=== PATIENT | male | born 2000 | race Two or more races ===

== ENCOUNTER 2020-03-26 14:19 | Emergency (ER) | payer OTHER ==
[~2020-03-26] VITALS: Ht 182.9 cm; Wt 113.6 kg
[2020-03-26] MEDS ORDERED: NORCO, ANEXSIA 5/325MG TABLET (HYDROcodone/ACETAMINOPHEN) PO ONE (15:00)
[2020-03-26] MEDS ORDERED: KEFL500C17 PO (15:54)
[2020-03-26 16:01] VITALS: BP 133/73
== END 2020-03-26 16:05 | disposition home or self-care (01) ==
LOC: M ED 14:19
DX: S61.203A Unspecified open wound of left middle finger without damage to nail, initial encounter (principal); W26.0XXA Contact with knife, initial encounter; Y92.098 Other place in other non-institutional residence as the place of occurrence of the external cause

== ENCOUNTER → 2021-05-08 | Outpatient (REF) ==
[~2021-05-08] MED LIST: KEFL500C17 PO
--- NOTE | 2021-05-09 04:33 | REPPI ---
INDICATION: DISABILITY DIAGNOSIS DETERMINATION COMPARISON: None. TECHNIQUE: AP, lateral, and sunrise views of the left knee. FINDINGS: No acute fracture or dislocation. No significant degenerative changes. Joint spaces are intact and normal. No effusion. IMPRESSION: Normal left knee radiographs. <Electronically signed by Gilbert Norton > 05/09/21 1942
--- NOTE | 2021-05-09 04:33 | REPPI ---
INDICATION: DISABILITY DIAGNOSIS DETERMINATION COMPARISON: None. TECHNIQUE: AP, lateral, coned-down views of the lumbar spine. FINDINGS: Three views of the lumbosacral spine demonstrate satisfactory alignment and lordosis without acute fracture / compression injury or subluxation. Mild endplate sclerosis and disc space narrowing at L5-S1 noted. No further degenerative changes are appreciated. IMPRESSION: 1. No acute fracture / compression injury or subluxation. 2. Mild disc space narrowing at L5-S1 suggested. <Electronically signed by Gilbert Norton > 05/09/21 [id number]
--- NOTE | 2021-05-09 04:49 | REPPI ---
INDICATION: DISABILITY DIAGNOSIS DETERMINATION COMPARISON: None. TECHNIQUE: AP, lateral, bilateral oblique views left foot. FINDINGS: Evidence for prior satisfactory orthopedic fixation of the 5th metatarsal bone. Remainder of the examination is age-appropriate and normal. IMPRESSION: Essentially normal examination. Prior fixation at the 5th metatarsal bone. <Electronically signed by Gilbert Norton > 05/09/21 [id number]
== END ==
LOC: M PLAIMG 14:25
PROVIDERS: ATTEND Internal Medicine
DX: Z00.00 Encounter for general adult medical examination without abnormal findings (principal)

== ENCOUNTER 2021-05-18 11:27 | Emergency (ER) | payer OTHER ==
[~2021-05-18] VITALS: Ht 182.9 cm; Wt 121.9 kg
[2021-05-18] MEDS ORDERED: TIZA4TAB4 (11:33)
[2021-05-18 12:59] LABS: BASO % 0.4 % (0.0-1.0); EOS # 0.1 10^3/uL (0.0-0.5); EOS % 1.8 % (0.0-3.0); HEMATOCRIT 50.1 % (42.0-52.0); HEMOGLOBIN 16.8 g/dl (13.5-17.5); LYMPH % 43.5 % (24.0-44.0); MEAN CORPUSCULAR HEMOGLOBIN 29.9 pg (27.0-33.0); MEAN CORPUSCULAR HGB CONC 33.5 g/dl (32.0-36.5); MEAN CORPUSCULAR VOLUME 89.1 fl (80.0-96.0); MONO # 0.6 10^3/uL (0.0-0.8); NEUTROPHILS # 1.9 10^3/uL (1.5-8.5); NEUTROPHILS % 42.3 % (36.0-66.0); PLATELET COUNT, AUTOMATED 205 10^3/uL (150-450); RED BLOOD COUNT 5.62 10^6/uL (4.30-6.10); WHITE BLOOD COUNT 4.6 10^3/uL (4.0-10.0)
--- NOTE | 2021-05-18 13:09 | REP ---
INDICATION: CHEST PAIN. COMPARISON: None. FINDINGS: The superior mediastinal structures are midline. The cardiac silhouette is unremarkable in size, shape, and position. The diaphragmatic surfaces of the lungs are regular, and the costophrenic angles are clear. The pulmonary bradshaw are clear. The imaged osseous structures are intact. IMPRESSION: There is no acute cardiopulmonary disease. <Electronically signed by Zeferino Harmon > 05/18/21 [id number]
[2021-05-18 13:22] LABS: ERYTHROCYTE SEDIMENTATION RATE 2 mm/hr (0-15)
[2021-05-18 13:24] LABS: ALBUMIN 4.5 GM/DL (3.2-5.2); ALT/SGPT 47 U/L (12-78); BILIRUBIN,DIRECT 0.1 MG/DL (0.0-0.2); BILIRUBIN,TOTAL 0.7 MG/DL (0.2-1.0); BLOOD UREA NITROGEN 15 MG/DL (7-18); C REACTIVE PROTEIN QUANTITATIV 2.06 MG/DL (0.00-0.30); CALCIUM LEVEL 9.6 MG/DL (8.5-10.1); CARBON DIOXIDE LEVEL 30 MEQ/L (21-32); CHLORIDE LEVEL 103 MEQ/L (98-107); CPK CREATINE PHOSPHOKINASE 101 U/L (39-308); CREATININE FOR GFR 1.05 MG/DL (0.70-1.30); FREE T4 0.92 NG/DL (0.76-1.46); GLOMERULAR FILTRATION RATE > 60.0 (>60); GLUCOSE, FASTING 88 MG/DL (70-100); LIPASE 88 U/L (73-393); NT-PRO BNP < 5 PG/ML (<125); POTASSIUM SERUM 4.5 MEQ/L (3.5-5.1); SODIUM LEVEL 138 MEQ/L (136-145); TOTAL PROTEIN 8.1 GM/DL (6.4-8.2); TROPONIN I < 0.02 NG/ML (< 0.10)
[2021-05-18] MEDS ORDERED: ISOVUE-370 76% 100ML VIAL As Ordered ONE (13:36)
[2021-05-18 13:43] LABS: CK-MB VALUE MASS < 1.0 NG/ML (<3.6); MB/CK RELATIVE INDEX 0.99 (< OR =4)
--- NOTE | 2021-05-18 13:57 | REP ---
INDICATION: PLEURITIC CHEST PAIN, R/O PE, CARDIOMYOPATHY COMPARISON: None. TECHNIQUE: After the intravenous administration of [address] angiography of the chest was obtained with attention to the pulmonary arteries. FINDINGS: There is excellent visualization of the pulmonary arterial vasculature. No focal filling defects are present that would be considered consistent with acute pulmonary emboli. There is no mediastinal or hilar adenopathy. There is a small amount of soft tissue density in the anterior junctional. There are no pleural or pericardial effusions. The imaged upper abdomen is within normal limits. Limited evaluation of the thoracic aorta shows no abnormality. The imaged osseous structures are within normal limits. Evaluation of the lung bradshaw shows no abnormal nodules, masses, or opacities. IMPRESSION: There is a minimal amount of soft tissue density seen in the anterior junction line likely representing a small amount of residual thymic tissue. Examination is otherwise unremarkable. There is no pulmonary embolism. <Electronically signed by Zeferino Harmon > 05/18/21 [id number]
[2021-05-18] MEDS ORDERED: IBUPROFEN 800 MG TAB PO ONE (14:50)
[2021-05-18 15:07] VITALS: BP 120/86
[2021-05-18 15:20] LABS: CK-MB VALUE MASS < 1.0 NG/ML (<3.6); CPK CREATINE PHOSPHOKINASE 166 U/L (39-308); TROPONIN I < 0.02 NG/ML (< 0.10)
[2021-05-18] MEDS ORDERED: IBUP80TA PO (15:32)
--- NOTE | 2021-05-19 14:20 | ECGEPIP ---
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
--- NOTE | 2021-05-19 14:22 | ECGEPIP ---
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
== END 2021-05-18 15:44 | disposition home or self-care (01) ==
LOC: M ED 11:27
DX: R07.9 Chest pain, unspecified (principal); R06.00 Dyspnea, unspecified; R51.9 Headache, unspecified; Z77.098 Contact with and (suspected) exposure to other hazardous, chiefly nonmedicinal, chemicals
CPT/HCPCS: 36415; 71046; 71275; 80047; 80048; 80076; 82550; 82553; 83690; 83880; 84439; 84443; 84484; 85025; 85652; 86140; 93005; 99284; Q9967

== ENCOUNTER 2021-05-19 10:36 | Emergency (ER) | payer OTHER ==
[~2021-05-19] VITALS: Ht 182.9 cm; Wt 122.4 kg
[~2021-05-19 10:36] MED LIST changes: +IBUP80TA PO; +TIZA4TAB4
[2021-05-19 12:12] LABS: BASO % 0.2 % (0.0-1.0); EOS # 0.1 10^3/uL (0.0-0.5); EOS % 1.1 % (0.0-3.0); HEMATOCRIT 48.5 % (42.0-52.0); HEMOGLOBIN 16.2 g/dl (13.5-17.5); LYMPH # 1.5 10^3/uL (1.5-5.0); LYMPH % 28.6 % (24.0-44.0); MEAN CORPUSCULAR HEMOGLOBIN 29.6 pg (27.0-33.0); MEAN CORPUSCULAR HGB CONC 33.4 g/dl (32.0-36.5); MEAN CORPUSCULAR VOLUME 88.7 fl (80.0-96.0); MONO # 0.5 10^3/uL (0.0-0.8); MONO % 8.9 % (2.0-8.0); NEUTROPHILS # 3.2 10^3/uL (1.5-8.5); NEUTROPHILS % 60.8 % (36.0-66.0); PLATELET COUNT, AUTOMATED 194 10^3/uL (150-450); RED BLOOD COUNT 5.47 10^6/uL (4.30-6.10); WHITE BLOOD COUNT 5.3 10^3/uL (4.0-10.0)
[2021-05-19 12:31] LABS: ERYTHROCYTE SEDIMENTATION RATE 3 mm/hr (0-15)
[2021-05-19 12:37] LABS: BLOOD UREA NITROGEN 14 MG/DL (7-18); C REACTIVE PROTEIN QUANTITATIV 1.75 MG/DL (0.00-0.30); CARBON DIOXIDE LEVEL 33 MEQ/L (21-32); CHLORIDE LEVEL 104 MEQ/L (98-107); CK-MB VALUE MASS < 1.0 NG/ML (<3.6); CPK CREATINE PHOSPHOKINASE 97 U/L (39-308); GLOMERULAR FILTRATION RATE > 60.0 (>60); GLUCOSE, FASTING 96 MG/DL (70-100); MB/CK RELATIVE INDEX 1.03 (< OR =4); POTASSIUM SERUM 4.2 MEQ/L (3.5-5.1); SODIUM LEVEL 137 MEQ/L (136-145); TROPONIN I < 0.02 NG/ML (< 0.10)
--- NOTE | 2021-05-19 12:37 | REP ---
INDICATION: CHEST PAIN. COMPARISON: 05/18/2021 TECHNIQUE: Portable FINDINGS: The technique utilized in obtaining the radiograph has magnified the cardiac silhouette and accentuated the interstitial markings. The superior mediastinal structures are midline. The cardiac silhouette is unremarkable in size, shape, and position. The diaphragmatic surfaces of the lungs are regular, and the costophrenic angles are clear. The pulmonary bradshaw are clear. The imaged osseous structures are intact. IMPRESSION: There is no acute cardiopulmonary disease. <Electronically signed by Zeferino Harmon > 05/19/21 0182
[2021-05-19] MEDS ORDERED: KETOROLAC 30 MG/ML 1ML VIAL IV ONE (12:45)
[2021-05-19 13:04] LABS: ALBUMIN 4.4 GM/DL (3.2-5.2); ALT/SGPT 37 U/L (12-78); BILIRUBIN,DIRECT 0.2 MG/DL (0.0-0.2); BILIRUBIN,TOTAL 0.7 MG/DL (0.2-1.0); LIPASE 77 U/L (73-393); TOTAL PROTEIN 7.8 GM/DL (6.4-8.2)
--- NOTE | 2021-05-19 14:34 | ECGEPIP ---
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
[2021-05-19 17:22] LABS: CK-MB VALUE MASS < 1.0 NG/ML (<3.6); CPK CREATINE PHOSPHOKINASE 74 U/L (39-308); MB/CK RELATIVE INDEX 1.35 (< OR =4); TROPONIN I < 0.02 NG/ML (< 0.10)
[2021-05-19 18:05] VITALS: BP 127/62
--- NOTE | 2021-05-20 15:12 | ECGEPIP ---
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
--- NOTE | 2021-05-20 21:02 | ED PDOC ---
Post-Departure Follow-Up cta chest faxed to elsa gao for fu Vivek Levine MD May 20, 2021 21:02
== END 2021-05-19 17:35 | disposition home or self-care (01) ==
LOC: M ED 10:36
DX: R07.9 Chest pain, unspecified (principal); R06.02 Shortness of breath
CPT/HCPCS: 71045; 80048; 80076; 82550; 82553; 83690; 84484; 85025; 85652; 86140; 93005; 93041; 94760; 96374; 99285; J1885